=== PATIENT | male | born 1980 | race Caucasian/White ===

== ENCOUNTER 2022-03-21 18:54 | Emergency (ER) | payer BC, SELFPAY ==
--- NOTE | ~2022-03-21 | XR_ITS ---
EXAMINATION: XR FINGER, LEFT CLINICAL INFORMATION: Question fracture of the small finger COMPARISON: None TECHNIQUE: Three views of the left small finger. FINDINGS: The soft tissue injury/laceration at the tip of the small finger with overlying radiodense bandaging. No osseous involvement/fracture. No dislocation. Joint spaces are maintained. No radiodense foreign body identified. Metallic ring overlies the fourth proximal phalanx. XR/XR finger LT min 2V IMPRESSION: Soft tissue injury/laceration at the tip of the small finger. No osseous involvement or radiodense foreign body.
[2022-03-21 19:05] VITALS: BP 132/74; PULSE 73; RESP 16; TEMP 36.6; O2SAT 97; BMI 31.0
--- NOTE | 2022-03-21 19:09 | ED_ITS ---
HPI - Wound/Laceration General Chief Complaint: Wound/Laceration <Kang Graham MD - Last Filed: 03/21/22 19:11> Stated Complaint: left hand finger tip cut off <Kang Graham MD - Last Filed: 03/21/22 19:11> Time Seen by Provider: 03/21/22 19:54 <Kang Graham MD - Last Filed: 03/21/22 19:11> Source: patient <GALEN Bejarano - Last Filed: 03/21/22 23:35> Mode of arrival: ambulatory <GALEN Bejarano - Last Filed: 03/21/22 23:35> Limitations: no limitations <GALEN Bejarano - Last Filed: 03/21/22 23:35> History of Present Illness HPI narrative: Patient was cooking and using a knife and cut his left pinky finger by accident. Patient states it clean cut of tip of his finger. Patient states there was much bleeding. Patient is up-to-date with tetanus. Patient denies any others complaints <GALEN Bejarano - Last Filed: 03/21/22 23:35> Related Data Home Medications: Previous Rx's Medication Instructions Recorded cephalexin 500 mg capsule 500 mg PO QID 7 days #28 caps 03/21/22 <Kang Graham MD - Last Filed: 03/21/22 19:11> Allergies/Adverse Reactions: Allergies Allergy/AdvReac Type Severity Reaction Status Date / Time No Known Allergies Allergy Unverified 03/21/22 19:07 [No Known Allergies*] <Kang Graham MD - Last Filed: 03/21/22 19:11> Review of Systems Review of Systems: left pinky lacration <GALEN Bejarano - Last Filed: 03/21/22 23:35> [facility] Social History Social History: Social History Advance Directives: No Advance Directives Information Provided: No <Kang Graham MD - Last Filed: 03/21/22 19:11> Physical Exam Vital Signs: Vital Signs: Last Vital Signs Temp 97.8 F 03/21/22 19:05 Pulse 73 03/21/22 19:05 Resp 16 03/21/22 19:05 BP 132/74 03/21/22 19:05 Pulse Ox 97 03/21/22 19:05 O2 Del Method 03/21/22 19:05 BMI result Body Mass Index 31.0 <Kang Graham MD - Last Filed: 03/21/22 19:11> Vital Signs: Last Vital Signs Temp 97.8 F 03/21/22 19:05 Pulse 73 03/21/22 19:05 Resp 16 03/21/22 19:05 BP 132/74 03/21/22 19:05 Pulse Ox 97 03/21/22 19:05 O2 Del Method 03/21/22 19:05 BMI result Body Mass Index 31.0 <GALEN Bejarano Last Filed: 03/21/22 23:35> Const: General: cooperative, healthy appearing, comfortable, no acute distress, well developed, alert, awake and Physically active <GALEN Bejarano - Last Filed: 03/21/22 23:35> Orientation/consciousness: oriented to time and patient oriented x3 <GALEN Bryant - Last Filed: 03/21/22 23:35> HEENT: Head: Yes normal to inspection, Yes No palpable skull fracture present, Yes normocephalic, Yes atraumatic and No abrasion <GALEN Bejarano Last Filed: 03/21/22 23:35> Eyes: General: appearance normal, both eyes and all related structures <GALEN Bejarano - Last Filed: 03/21/22 23:35> Neck: Neck: Yes normal visual inspection, Yes full ROM, Yes no lymphadenopathy, Yes no meningeal signs, Yes trachea midline, Yes supple, No anterior neck swelling and No tender <GALEN Bejarano Last Filed: 03/21/22 23:35> Chest: Chest palpation & inspection: normal inspection of the chest and normal palpation of entire chest wall <GALEN Bejarano Last Filed: 03/21/22 23:35> Resp: Effort & Inspection: normal respiratory effort and able to speak in complete sentences <GALEN Bejarano Last Filed: 03/21/22 23:35> Auscultation: clear to auscultation bilaterally <GALEN Bejarano Last Filed: 03/21/22 23:35> Cardio: Jugular venous distension: no JVD <GALEN Bejarano - Last Filed: 03/21/22 23:35> Heart sounds: S1 normal heart sound present and S2 normal heart sound present <GALEN Bejarano - Last Filed: 03/21/22 23:35> GI: Inspection: Yes normal to inspection and No abdominal wall ecchymosis <GALEN Bejarano - Last Filed: 03/21/22 23:35> Palpation (GI): Soft to palpation, not firm, nontender, no guarding and not rigid <GALEN Bejarano - Last Filed: 03/21/22 23:35> : General: No CVA tenderness and Yes no CVA tenderness <GALEN Bejarano - Last Filed: 03/21/22 23:35> Back/Spine/Pelvis: Back: no CVA tenderness, No CVA tenderness and No back tenderness <GALEN Bejarano - Last Filed: 03/21/22 23:35> Skin: General skin exam: no rashes or lesions noted and elasticity normal <GALEN Bejarano - Last Filed: 03/21/22 23:35> Neuro: General: oriented to time, patient oriented x3, tone normal, no meningeal signs and CN's II-XI intact bilaterally <GALEN Bejarano - Last Filed: 03/21/22 23:35> Cranial nerves: Yes CN's II-XII intact bilaterally <GALEN Bejarano - Last Filed: 03/21/22 23:35> Extrem: General: Yes normal to inspection and Yes full ROM <GALEN Bejarano - Last Filed: 03/21/22 23:35> Hand/finger images: 1. Positive for skin avulsion. Positive for bleeding. Negative for squirting blood. Motor/nerve/vascular exam intact of finger and rest of extremity. <Kang Graham MD - Last Filed: 03/21/22 19:11> Hand/finger images: 1. Positive for skin avulsion. Positive for bleeding. Negative for squirting blood. Motor/nerve/vascular exam intact of finger and rest of extremity. <GALEN Bejarano Last Filed: 03/21/22 23:35> Psych: Appearance: grossly normal, well kempt and not disheveled <GALEN Bejarano - Last Filed: 03/21/22 23:35> Course Course Course Narrative: X-ray ordered. <GALEN Bejarano - Last Filed: 03/21/22 23:35> Reevaluation(s) Reevaluation #1: Left 5th finger laceration using a kitchen knife while he was cooking, measuring tip of his finger been bleeding for the last 3 hours was none. Pat ient has not taken blood thinner in triage the finger was wrapped with a pressure dressing was kept checking on until it is bleeding. Patient is up-to-date on his immunization. <Kang Graham MD - Last Filed: 03/21/22 19:11> Reevaluation #2: Wound clean with sterile saline and Betadine iodine. Two layers of Surgicel placed to help with bleeding. Patient placed in pressure Dressing. Xray normal <GALEN Bejarano - Last Filed: 03/21/22 23:35> Time: 21:30 <GALEN Bejarano - Last Filed: 03/21/22 23:35> MDM - Wound/Laceration MDM Narrative Medical decision making narrative: Skin avulsion <GALEN Bejarano - Last Filed: 03/21/22 23:35> Discharge Plan Discharge Clinical Impression: Avulsion of skin of finger <Kang Graham MD - Last Filed: 03/21/22 19:11> Patient Disposition: Home, Self-Care <Kang Graham MD - Last Filed: 03/21/22 19:11> Instructions: Skin Avulsion (ED) <Kang Graham MD - Last Filed: 03/21/22 19:11> Additional Instructions: You will be discharged with antibiotics. Return to the ED immediately for any redness, swelling, bluish black discoloration, controlled bleeding, fever, chills, any other transient. Do not remove pressure dressing for a lease 1st 48 hours. Do not remove Surgicel. It will fall off on its own. Please folow up with your PCP <Kang Graham MD - Last Filed: 03/21/22 19:11> Prescriptions: New cephalexin 500 mg capsule 500 mg PO QID 7 Days Qty: 28 0RF <Kang Graham MD - Last Filed: 03/21/22 19:11> Stand Alone Forms: Work/School Release <Kang Graham MD - Last Filed: 03/21/22 19:11> Interventions: ED Discharge Assessment Last Done: 03/21/22 21:55 <Kang Graham MD - Last Filed: 03/21/22 19:11> Discharge Date/Time: 03/21/22 21:55 <Kang Graham MD - Last Filed: 03/21/22 19:11> Print Language: Mohawk <Kang Graham MD - Last Filed: 03/21/22 19:11>
== END 2022-03-21 21:55 | disposition home or self-care (01) ==
PROVIDERS: Emergency Provider Internal Medicine; PCP Family Medicine
DX: S61.217A Laceration without foreign body of left little finger without damage to nail, initial encounter (principal); W26.0XXA Contact with knife, initial encounter; Y93.G1 Activity, food preparation and clean up; Y92.010 Kitchen of single-family (private) house as the place of occurrence of the external cause; Y99.9 Unspecified external cause status
CPT/HCPCS: 12001; 73140; 99282; 99283